=== PATIENT | male | born 1960 | race American Indian/Alaskan Native ===

== ENCOUNTER 2019-04-24 19:48 | Emergency (ER) | payer OTHER ==
[2019-04-24 20:10] VITALS: BP 132/67
--- NOTE | 2019-04-24 20:35 | Emergency Department Report ---
Blank Doc - Documentation Documentation: 58 y o male presents with bleeding in stool x 1 week hx of hemorrhoids
[2019-04-24 21:46] LABS: Basophils % (Auto) 0.7 % (0.0-1.8); Eosinophils # (Auto) 0.1 K/mm3 (0.0-0.4); Eosinophils % (Auto) 2.8 % (0.0-4.3); Hemoglobin 9.2 gm/dl (11.8-15.2); Lymphocytes # (Auto) 1.9 K/mm3 (1.2-5.4); Mean Corpuscular HGB Conc 34 % (32-34); Monocytes # (Auto) 0.5 K/mm3 (0.0-0.8); Platelet Count 242 K/mm3 (140-440); Red Blood Count 3.91 M/mm3 (3.65-5.03); Red Cell Distribution Width 19.8 % (13.2-15.2)
[2019-04-24 21:47] LABS: Mean Corpuscular Volume 69 fl (84-94)
[2019-04-24 21:56] LABS: INR 1.15 (0.87-1.13)
[2019-04-24 21:57] LABS: Partial Thromboplastin Time 29.6 Sec. (24.2-36.6)
[2019-04-24 22:06] LABS: BUN/Creatinine Ratio 11; Blood Urea Nitrogen 11 mg/dL (9-20); Calcium 8.5 mg/dL (8.4-10.2); Hemolysis Index 13
--- NOTE | 2019-04-24 22:31 | Emergency Department Report ---
ED General Adult HPI - General Chief complaint: GI Bleed Stated complaint: RECTAL PAIN Time Seen by Provider: 04/24/19 20:32 Source: patient, RN notes reviewed Mode of arrival: Ambulatory Limitations: No Limitations - History of Present Illness Initial comments: This is a pleasant 58-year-old gentleman. The patient is not known to this provider previously. He endorses a past medical history of hemorrhoids. He presents to the emergency room today with a complaint of intermittent rectal bleeding for one week. He makes no complaint of sudden headache, denies new or different visual changes, denies chest pain, abdominal pain, shortness of breath. He does not take any anticoagulants or blood thinning medication. He reports taking an [id number] medication, daflon, without improvement in symptoms. No recent colonoscopy that he can recall. Denies exertional chest pain or exertional shortness of breath. Denies passing out or loss of co nsciousness. -: days(s) Consistency: intermittent Improves with: none Worsens with: none - Related Data Previous Rx's Medication Instructions Recorded Last Taken Type Hydrocortisone [Anusol-Hc 2.5% TOP 30 gm RC BID #30 cream..g. 04/24/19 Unknown Rx CREAM] Allergies Allergy/AdvReac Type Severity Reaction Status Date / Time No Known Allergies Allergy Unverified 04/24/19 20:36 ED Review of Systems ROS: Stated complaint: RECTAL PAIN Other details as noted in HPI Constitutional: denies: malaise Eyes: denies: eye discharge ENT: denies: epistaxis Respiratory: denies: cough Cardiovascular: denies: chest pain, palpitations Gastrointestinal: hematochezia. denies: abdominal pain, hematemesis, melena Genitourinary: denies: dysuria Musculoskeletal: arthralgia Skin: denies: lesions Neurological: denies: weakness ED Past Medical Hx - Past Medical History Previous Medical History?: Yes Additional medical history: Hemorrhoids - Surgical History Past Surgical History?: Yes Additional Surgical History: Hemoroidectomy - Social History Smoking Status: Never Smoker Substance Use Type: None - Medications Home Medications: Home Medications Medication Instructions Recorded Confirmed Last Taken Type Hydrocortisone [Anusol-Hc 2.5% TOP 30 gm RC BID #30 cream..g. 04/24/19 Unknown Rx CREAM] ED Physical Exam - General Limitations: No Limitations General appearance: alert, in no apparent distress - Head Head exam: Present: atraumatic, normocephalic - Eye Eye exam: Present: normal appearance, EOMI. Absent: nystagmus - ENT ENT exam: Present: normal exam, normal orophraynx, mucous membranes moist, normal external ear exam - Neck Neck exam: Present: normal inspection, full ROM. Absent: tenderness, meningismus - Respiratory Respiratory exam: Present: normal lung sounds bilaterally. Absent: respiratory distress, wheezes, rales, rhonchi, stridor, chest wall tenderness - Cardiovascular Cardiovascular Exam: Present: regular rate, normal rhythm, normal heart sounds. Absent: bradycardia, tachycardia, irregular rhythm, systolic murmur, diastolic murmur, rubs, gallop - GI/Abdominal GI/Abdominal exam: Present: soft. Absent: distended, tenderness, guarding, rebound, rigid, pulsatile mass - Rectal Rectal exam: Present: normal inspection, normal rectal tone, heme (+) stool (chaperoned by nurse suri Quinn), hemorrhoids (internal hemorrhoids appreciated). Absent: black stool - Extremities Exam Extremities exam: Present: normal inspection, full ROM, other (2+ pulses noted in the bilateral upper, lower extremities. Compartments soft. No long bony tenderness. The pelvis is stable.). Absent: pedal edema, joint swelling, calf tenderness - Back Exam Back exam: Present: normal inspection, full ROM. Absent: tenderness, CVA tenderness (R), CVA tenderness (L), paraspinal tenderness, vertebral tenderness - Neurological Exam Neurological exam: Present: alert, oriented X3, normal gait, other (Extraocular movements intact. Tongue midline. No facial droop. Facial sensation intact to light touch in the V1, V2, V3 distribution bilaterally. 5 and 5 strength in 4 extremities.. Sensation is intact to light touch in 4 extremities.). Absent: motor sensory deficit - Psychiatric Psychiatric exam: Present: normal affect, normal mood - Skin Skin exam: Present: warm, dry, intact, normal color. Absent: rash ED Course Vital Signs 04/24/19 04/24/19 19:53 20:32 Temperature 98.2 F 98.2 F Pulse Rate 74 73 Respiratory 16 18 Rate Blood Pressure 132/67 132/67 O2 Sat by Pulse 99 99 Oximetry ED Medical Decision Making - Lab Data Result diagrams: 04/24/19 21:16 04/24/19 21:16 Vital Signs 04/24/19 04/24/19 19:53 20:32 Temperature 98.2 F 98.2 F Pulse Rate 74 73 Respiratory 16 18 Rate Blood Pressure 132/67 132/67 O2 Sat by Pulse 99 99 Oximetry Lab Results 04/24/19 04/24/19 04/24/19 Range/Units 21:16 21:16 21:16 WBC 5.3 (4.5-11.0) K/mm3 RBC 3.91 (3.65-5.03) M/mm3 Hgb 9.2 L (11.8-15.2) gm/dl Hct 27.0 L (35.5-45.6) % MCV 69 L (84-94) fl MCH 24 L (28-32) pg MCHC 34 (32-34) % RDW 19.8 H (13.2-15.2) % Plt Count 242 (140-440) K/mm3 Lymph % (Auto) 35.0 (13.4-35.0) % [place] % (Auto) 10.0 H (0.0-7.3) % Eos % (Auto) 2.8 (0.0-4.3) % Baso % (Auto) 0.7 (0.0-1.8) % Lymph # 1.9 (1.2-5.4) K/mm3 [place] # 0.5 (0.0-0.8) K/mm3 Eos # 0.1 (0.0-0.4) K/mm3 Baso # 0.0 (0.0-0.1) K/mm3 Seg Neutrophils % 51.5 (40.0-70.0) % Seg Neutrophils # 2.7 (1.8-7.7) K/mm3 PT 14.4 (12.2-14.9) Sec. INR 1.15 H (0.87-1.13) APTT 29.6 (24.2-36.6) Sec. Sodium 140 (137-145) mmol/L Potassium 3.6 (3.6-5.0) mmol/L Chloride 105.2 (98-107) mmol/L Carbon Dioxide 23 (22-30) mmol/L Anion Gap 15 mmol/L BUN 11 (9-20) mg/dL Creatinine 1.0 (0.8-1.5) mg/dL Estimated GFR > 60 ml/min BUN/Creatinine Ratio 11 % Glucose 129 H (75-100) mg/dL Calcium 8.5 (8.4-10.2) mg/dL - EKG Data When compared to previous EKG there are: previous EKG unavailable 04/24/19 22:31 This is a sinus bradycardia, 58 bpm, normal axis, QTC within normal limits, VA interval prolonged, left ventricular hypertrophy, borderline atrial enlargement, no endorsement of chest pain, this EKG is not consistent with ST elevation myocardial infarction - Medical Decision Making Differential diagnosis, including are not limited to: Internal hemorrhoids, colonic malignancy Assessment and plan: 58-year-old gentleman with a reported history of internal hemorrhoids, with intermittent painless rectal bleeding for one week, vital signs reviewed and appreciated, laboratory studies reviewed and appreciated. Patient appears quite comfortable does not appear to be acutely symptomatic. Rectal exam shows trace blood on internal examination. No gross blood is noted on rectal examination. Patient will be started on Anusol, and he is counseled to follow up with an outpatient poultry offal worker for further evaluation and management. Critical care attestation.: If time is entered above; I have spent that time in minutes in the direct care of this critically ill patient, excluding procedure time. ED Disposition Clinical Impression: History of rectal bleeding Disposition: -01 TO HOME OR SELFCARE Is pt being admited?: No Does the pt Need Aspirin: No Condition: Stable Instructions: Hemorrhoids (ED), Rectal Bleeding (ED) Additional Instructions: Avoid consumption of Motrin, ibuprofen, Naprosyn, Aleve, heavy, spicy foods. Follow-up with a poultry offal worker within the next 3-5 days. [facility] is a local gastroenterology practice that may be contacted at the listed phone number: it Is very important to follow-up as an outpatient for evaluation for colonoscopy, to exclude cancer, tumor, malignancy. Return to the emergency room right away with new, worsening or different symptoms, or symptoms not present on the initial emergency room evaluation. Referrals: [facility] [Provider Group] - 3-5 Days
== END 2019-04-24 23:20 | disposition home or self-care (01) ==
LOC: ED 19:48
DX: K62.5 Hemorrhage of anus and rectum (principal)
CPT/HCPCS: 36415; 80048; 82271; 85025; 85610; 85730; 93005; 93010; 99283